=== PATIENT | female | born 1965 | race Caucasian/White ===

== ENCOUNTER 2016-11-04 16:48 | Emergency (ER) | payer SELFPAY ==
[2016-11-04 17:17] VITALS: TEMP 98.2; BMI 42.7
[2016-11-04] MEDS ORDERED: CYCLOBENZAPRINE 10 MG TAB PO ONE (18:52)
[2016-11-04] MEDS ORDERED: KETOROLAC TROMETHAMINE 10 MG TAB PO ONE (18:52)
--- NOTE | 2016-11-04 18:52 | EDPRACDOC ---
- General Chief Complaint: Fall Stated Complaint: FALL Time Seen by Provider: 11/04/16 18:46 Information Source: Patient - History of Present Illness Onset: [employer] HPI: PT STATES SHE SLIPPED ON WET GROUND, FELL INJURING LEFT BACK AND LEFT ANKLE, STATES UNABLE TO BEAR WEIGHT ON ANKLE/FOOT. PT DENIES LOC, HAS NOT TAKEN ANY MEDS FOR SAME. Pain Severity: Reports: Severe Injuries/Pain Location: Reports: back, lower extremity Reason for Fall: Reports: slipped Loss of Consciousness: no loss of consciousness Modifying Factors: improves with: movement Associated Symptoms (Fall): Reports: denies symptoms Allergies/Adverse Reactions: Allergies clarithromycin [From Biaxin] Allergy (Verified 11/04/16 17:17) Rash-Generalized Home Medications: Ambulatory Orders Hydrocodone/Acetaminophen [Lortab 5-325 mg Tablet] 1 each PO Q4H PRN #15 tablet 09/12/16 Promethazine [Phenergan] 25 mg PO Q6H PRN #10 tab 09/12/16 Ciprofloxacin HCl [Cipro] 500 mg PO BID #20 tab 10/16/16 Polymyxin B Sulfate/Tmp [Polymyxin B-Tmp Eye Drops] 10 ml OS Q4 #1 drops Cyclobenzaprine HCl [Flexeril] 10 mg PO TID PRN #20 tablet 11/04/16 Ketoprofen 50 mg PO BID PRN #20 capsule 11/04/16 ED Past Medical History - History Reviewed Yes Nurses notes reviewed and agree except as marked - Patient Medical History Neurological History: Denies: Migraine Cardiac History: Reports: Hypertension Respiratory History: Denies: Bronchitis Psychological History: Denies: Depression Systemic History: Denies: Cancer, Diabetes Surgical History: Reports: Hysterectomy - Family Medical History Reports: Hypertension (PARENTS), Diabetes (FATHER), Cancer (FATHER MELANOMA), Stroke (FATHER), Cardiac Disorders (FATHER) - Social Medical History Smoking Status: Never smoker ETOH: None Substance Abuse: None EDM Review of Systems - Review of Systems Gastrointestinal: negative: Nausea, Vomiting Neurological: negative: Dizziness, Numbness, Weakness Musculoskeletal: Ankle, Back, Foot Integumentary: No Symptoms Reported - Physical Exam Constitutional: No apparent distress Oriented to: Time, Person, Place Last recorded Vital Signs: Last Vital Signs Temp 98.2 F 11/04/16 17:12 Pulse 81 01/01/17 17:12 Resp 18 11/04/16 17:12 BP 172/81 11/04/16 17:12 Pulse Ox 94 11/04/16 17:12 Oxygen Pulse Oxygen Saturation 94 O2 Device Room Air Oxygen Flow Rate Fraction of Inspired Oxygen ( FIO2) - HEENT Head: Normal ( normocephalic) Neck: Normal (FROM, trachea at midline) - Musculoskeletal Back: Lumbar TTP Extremities: Normal Musculoskeletal Comment: LEFT ANKLE: FROM, DIFFUSE TENDER, NO SWELLING OR DEFORMITY LEFT FOOT: FROM, NO SWELLING OR DEFORMITY LEFT KNEE: FROM, NO SWELLING OR DEFORMITY - Integumentary Skin: Normal, Warm, Dry Lymphatics: Normal (no adenopathy) - Neurologic Memory Impaired: Normal Motor Function: Normal (Normal tone, Pulses 2+ No cyanosis or edema, FROM) Cranial Nerve: Normal (CN II-X11 intact sensation, strength 5/5) Cerebellar: Normal Mood Description: Normal Perception: Normal ED Injury/Fall Exam - Physical Exam Head Injury: no evidence of injury Skin: Normal, Warm, Dry - Briana Coma Score Best Eye Response (Briana): (4) open spontaneously Best Verbal Response (Lawrence): (5) oriented Best Motor Response (Lawrence): (6) obeys commands Briana Total: 15 - Differential Diagnosis Contusion, Fall, Fracture - Diagnostic Imaging LEFT FOOT Image interpreted by: Radiologist LEFT FOOT - COMPLETE 3+ VIEW COMPARISON: Left toe radiographs 07/09/2016 FINDINGS: No acute fracture or dislocation of the left foot. Interval callus formation about the fifth toe proximal phalanx fracture from prior exam consistent with healing. Mild lateral soft tissue edema. IMPRESSION: No acute fracture or dislocation of the left foot. LEFT ANKLE Image interpreted by: Radiologist LEFT ANKLE COMPLETE - 3+ VIEW COMPARISON: None. FINDINGS: There is no evidence of fracture, dislocation, or joint effusion. There is no evidence of arthropathy. There is a small plantar calcaneal spur. Mild soft tissue edema, primarily laterally phleboliths noted in the distal lower leg. IMPRESSION: No acute fracture or dislocation of the left ankle. L-S SPINE Image interpreted by: Radiologist LUMBAR SPINE - COMPLETE 4+ VIEW COMPARISON: CT abdomen pelvis 03/25/2015 FINDINGS: Normal anatomic alignment. Mild anterior height loss of T12 vertebral body. Relative preservation of the remainder the vertebral body heights. L3-4 degenerative disc disease. Lower lumbar spine degenerative facet disease. No evidence for static listhesis. IMPRESSION: Age-indeterminate anterior height loss of the T12 vertebral body. Recommend correlation for point tenderness. - Additional Information LUMBAR SPINE RESULTS NOTED, PT HAS NO TENDERNESS IN MIDLINE OF THORACIC OR LUMBAR SPINE, TENDERNESS IS IN LEFT LOWER LUMBAR SPINE AND PARASPINOUS MUSCLES Decision Time to Discharge: 20:09 - Departure Disposition: Home Condition: Stable Final Diagnosis: Accidental fall Acute low back pain Qualifiers: Back pain laterality: left Sciatica presence: without sciatica Qualified Code(s ): M54.5 - Low back pain Pain in left ankle Qualifiers: Chronicity: acute Qualified Code(s): M25.572 - Pain in left ankle and joints of left foot Instructions: RICE: Routine Care for Injuries Education/Counseling Given To: Patient Education/Counseling Given Regarding: Diagnosis, Treatment, Prognosis, Follow Up Referrals: Ilya Madsen MD [Primary Care Provider] - One Week Prescriptions: Cyclobenzaprine HCl [Flexeril] 10 mg PO TID PRN #20 tablet PRN Reason: Muscle Spasms Ketoprofen 50 mg PO BID PRN #20 capsule PRN Reason: Pain Additional Instructions: Back Pain: apply warm compresses to affected area 20 mins at a time 4 - 5 times daily as needed for pain
--- NOTE | 2016-11-04 19:35 | DIRPT ---
CLINICAL DATA: Patient status post fall in the [place]. Low back pain. EXAM: LUMBAR SPINE - COMPLETE 4+ VIEW COMPARISON: CT abdomen pelvis 03/25/2015 FINDINGS: Normal anatomic alignment. Mild anterior height loss of T12 vertebral body. Relative preservation of the remainder the vertebral body heights. L3-4 degenerative disc disease. Lower lumbar spine degenerative facet disease. No evidence for static listhesis. IMPRESSION: Age-indeterminate anterior height loss of the T12 vertebral body. Recommend correlation for point tenderness. Electronically Signed By: Maxwell Michelle M.D. On: 11/04/2016 19:33
--- NOTE | 2016-11-04 19:41 | DIRPT ---
CLINICAL DATA: Fall in the mud walking from car to house. Now with lateral left foot and ankle pain. EXAM: LEFT ANKLE COMPLETE - 3+ VIEW COMPARISON: None. FINDINGS: There is no evidence of fracture, dislocation, or joint effusion. There is no evidence of arthropathy. There is a small plantar calcaneal spur. Mild soft tissue edema, primarily laterally phleboliths noted in the distal lower leg. IMPRESSION: No acute fracture or dislocation of the left ankle. Electronically Signed By: Antonietta Tony M.D. On: 11/04/2016 19:39
--- NOTE | 2016-11-04 19:43 | DIRPT ---
CLINICAL DATA: Fall in the mud walking from car to house. Now with lateral left foot and ankle pain. EXAM: LEFT FOOT - COMPLETE 3+ VIEW COMPARISON: Left toe radiographs 07/09/2016 FINDINGS: No acute fracture or dislocation of the left foot. Interval callus formation about the fifth toe proximal phalanx fracture from prior exam consistent with healing. Mild lateral soft tissue edema. IMPRESSION: No acute fracture or dislocation of the left foot. Electronically Signed By: Antonietta Tony M.D. On: 11/04/2016 19:40
[2016-11-04 20:06] VITALS: BP 147/81; PULSE 77
== END 2016-11-04 20:20 | disposition home or self-care (01) ==
LOC: EDMC 16:48
DX: M54.5 Low back pain (principal); M25.572 Pain in left ankle and joints of left foot; I10 Essential (primary) hypertension; W01.0XXA Fall on same level from slipping, tripping and stumbling without subsequent striking against object, initial encounter
CPT/HCPCS: 72110; 73610; 73630; 99283; J3490